=== PATIENT | male | born 1995 | race Hispanic/Latino ===

== ENCOUNTER 2018-08-30 22:16 | Emergency (ER) | payer SELFPAY | END 2018-08-30 23:54 | disposition home or self-care (01) | LOC: EDH 22:16 | DX: S93.402A Sprain of unspecified ligament of left ankle, initial encounter (principal); X58.XXXA Exposure to other specified factors, initial encounter; Y93.89 Activity, other specified; Y92.89 Other specified places as the place of occurrence of the external cause; Y99.8 Other external cause status | CPT/HCPCS: 73610 ==

== ENCOUNTER 2019-01-15 17:57 | Emergency (ER) | payer OTHER ==
[2019-01-15] MEDS ORDERED: IBUPROFEN 600 MG TABLET ONE (18:18)
[2019-01-15] MEDS ORDERED: ACETAMINOPHEN EXTRA STRENGTH 500 MG TABLET ONE (18:32)
[2019-01-15] MEDS ORDERED: CEFTRIAXONE SODIUM 1 GM ONE (19:46)
[2019-01-15] MEDS ORDERED: SODIUM CHLORIDE 0.9% 1000ML 1,000 ML IV ONE (19:46)
[2019-01-15] MEDS ORDERED: SODIUM CHLORIDE 0.9% 50 ML IV ONE (19:47)
== END 2019-01-15 20:42 | disposition home or self-care (01) ==
LOC: EDH 17:57
DX: J02.0 Streptococcal pharyngitis (principal); Z72.0 Tobacco use
CPT/HCPCS: 36415; 86735; 87804 ×2; 87880; 96374; 99284; J0696; J7030